=== PATIENT | female | born 1965 | race Caucasian/White ===

== ENCOUNTER 2017-01-11 14:10 | Emergency (ER) | payer OTHER ==
[~2017-01-11] VITALS: Ht 160 cm; Wt 56.1 kg
[~2017-01-11 14:10] MED LIST: AUGMENTIN500 MG PO; CLINDAMYCIN HC300 MG PO; MINERALS; MOTRIN600 MG PO; NAPROXEN500 MG PO; ULTRAM50 MG PO; VITAMINS
[2017-01-11 15:24] VITALS: BP 130/87
== END 2017-01-11 15:24 | disposition home or self-care (01) ==
LOC: EME 14:10
DX: Z48.00 Encounter for change or removal of nonsurgical wound dressing (principal)
CPT/HCPCS: 99281; 99284